=== PATIENT | male | born 1990 | race Asian ===

== ENCOUNTER 2016-04-24 17:00 | Emergency (ER) | payer OTHER ==
[~2016-04-24] VITALS: Ht 165.1 cm; Wt 57.2 kg
[~2016-04-24 17:00] MED LIST: OSLT75C PO
[2016-04-24] MEDS ORDERED: TETANUS,DIPTH,PERTUSS P/F (BOOSTRIX) 0.5 ML VIAL IM ONE (17:45)
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
[2016-04-24] MEDS ORDERED: HYDR-87 PO (18:16)
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
[2016-04-24 18:35] VITALS: BP 132/68
== END 2016-04-24 18:35 | disposition home or self-care (01) ==
LOC: EDUNIT# 17:00 → ER 17:01
DX: S42.022A Displaced fracture of shaft of left clavicle, initial encounter for closed fracture (principal); S00.01XA Abrasion of scalp, initial encounter; S00.83XA Contusion of other part of head, initial encounter; Z23 Encounter for immunization; V28.0XXA Motorcycle driver injured in noncollision transport accident in nontraffic accident, initial encounter; Y92.481 Parking lot as the place of occurrence of the external cause; Y99.8 Other external cause status
CPT/HCPCS: 70450; 70486; 71010; 72125; 73000; 73030; 90471; 90715; 99283